=== PATIENT | male | born 1970 | race Caucasian/White ===

== ENCOUNTER 2017-08-19 00:34 | Emergency (ER) | payer BC ==
[2017-08-19] MEDS: Tetracaine HCl/PF 0.5% 4 ML Bottle EYEBOTH ONE (00:54)
[2017-08-19] MEDS: Tetracaine HCl/PF 0.5% 4 ML Bottle ONE (00:56)
[2017-08-19] MEDS ORDERED: Bacitracin/Polymyxin B Ophth Oint 3.5 GM Tube EYELF ONE (01:04)
[2017-08-19] MEDS ORDERED: Bacitracin/Neomycin/Polymyxin B Ophth Oint 3.5 GM Tube EYELF ONE (01:07)
[2017-08-19] MEDS: Bacitracin/Neomycin/Polymyxin B Ophth Oint 3.5 GM Tube EYELF ONE (01:07)
[2017-08-19] MEDS: Balanced Salt Solution Ophth Irrig 30 ML Bottle EYELF ONE (01:10)
--- NOTE | 2017-08-19 01:11 | EDM.PDOC ---
ED HPI GENERAL MEDICAL PROBLEM - General Chief Complaint: Eye Problems Stated Complaint: left eye discomfort Time Seen by Provider: 08/19/17 00:45 Source of Information: Reports: Patient ([id number]) History Limitations: Reports: No Limitations - History of Present Illness INITIAL COMMENTS - FREE TEXT/NARRATIVE: Patient is a 46-year-old who states he may have a foreign body in his right eye he denies doing anything that would cause this to happen he states he was home they down then felt something in his eye will came into the ER for evaluation and treatment Onset: Today Duration: Hour(s):, Getting Worse Location: Reports: Face Quality: Reports: Ache, Dull Severity: Mild Improves with: Reports: None Worsens with: Reports: None Context: Reports: Other (Unknown) Associated Symptoms: Reports: No Other Symptoms Treatments RECRUITER: Reports: Home Treatments Left Eye Pain Score (Numeric/FACES): 2 - Related Data Allergies Allergy/AdvReac Type Severity Reaction Status Date / Time No Known Allergies Allergy Verified 08/19/17 00:35 Home Meds: Home Meds Escitalopram [Lexapro] 20 mg PO BEDTIME 08/19/17 [History] ED ROS GENERAL - Review of Systems Review Of Systems: See Below Constitutional: Reports: No Symptoms HEENT: Reports: No Symptoms Respiratory: Reports: No Symptoms Cardiovascular: Reports: No Symptoms Endocrine: Reports: No Symptoms GI/Abdominal: Reports: No Symptoms : Reports: No Symptoms Musculoskeletal: Reports: No Symptoms Skin: Reports: No Symptoms Neurological: Reports: No Symptoms Psychiatric: Reports: No Symptoms ED EXAM GENERAL W FULL EYE - Physical Exam Exam: See Below Exam Limited By: No Limitations General Appearance: Alert, WD/WN, No Apparent Distress Eye Exam: Bilateral Eye: PERRL Eyelids: Left: Lid Everted for Exam, Bilateral: Normal Appearance Conjunctiva & Sclera: Bilateral: Normal Appearance Cornea Exam: Bilateral: Normal Appearance, Corneal Abrasion (None), Corneal Ulcer (None), Cloudy Cornea (None), Foreign Body (None), Examined with Flourescein Extraocular Movements: Bilateral: Intact Pupils: Normal Accommodation Ears: Normal External Exam, Normal Canal, Hearing Grossly Normal, Normal TMs Nose: Normal Inspection, Normal Mucosa, No Blood Throat/Mouth: Normal Inspection, Normal Lips, Normal Teeth, Normal Gums, Normal Oropharynx, Normal Voice, No Airway Compromise Head: Atraumatic, Normocephalic Neck: Normal Inspection, Supple, Non-Tender, Full Range of Motion Respiratory/Chest: No Respiratory Distress, Lungs Clear, Normal Breath Sounds, No Accessory Muscle Use, Chest Non-Tender Cardiovascular: Normal Peripheral Pulses, Regular Rate, Rhythm, No Edema, No Gallop, No JVD, No Murmur, No Rub GI/Abdominal: Normal Bowel Sounds, Soft, Non-Tender, No Organomegaly, No Distention, No Abnormal Bruit, No Mass (Male) Exam: Deferred Rectal (Males) Exam: Deferred Back Exam: Normal Inspection, Full Range of Motion, NT Extremities: Normal Inspection, Normal Range of Motion, Non-Tender, Normal Capillary Refill, No Pedal Edema Neurological: Alert, Oriented, CN II-XII Intact, Normal Cognition, Normal Gait, Normal Reflexes, No Motor/Sensory Deficits Psychiatric: Normal Affect, Normal Mood Skin Exam: Warm, Dry, Intact, Normal Color, No Rash ED EYE w/ Add Procedure - Eye Procedure Alcaine Drops Administered: Yes Eye Irrigated w/ Saline (ccs): 25 Progress: Patient was taken to the ER where he was laid in the gurney tetracaine was applied to the left eye and I was examining with a Wood's lamp and fluorescein no foreign body was seen no scratches were noted the eye was then irrigated and an eye patch was applied for the next 24 hours patient is retired to return if not better or refer himself to the eye doctor. Course - Vital Signs Last Recorded V/S: Last Vital Signs Temp 97.9 F 08/19/17 00:42 Pulse 66 08/19/17 00:42 Resp 17 08/19/17 00:42 BP 132/88 08/19/17 00:42 Pulse Ox 100 08/19/17 00:42 - Orders/Labs/Meds Meds: Medications Discontinued Medications Generic Name Dose Route Start Last Admin Trade Name Freq PRN Reason Stop Dose Admin Bacitracin/Polymyxin B Sulfate 1 gm 08/19/17 01:04 Polysporin Ophth Oint EYELF 08/19/17 01:05 TID ONE Balanced Salt Solution Confirm 08/19/17 00:54 Eye Stream Eye Rinse Administered 08/19/17 00:55 Dose 30 ml .ROUTE .STK-MED ONE Balanced Salt Solution 30 ml 08/19/17 00:54 Eye Stream Eye Rinse EYELF 08/19/17 00:55 ONETIME ONE Neomycin/Polymyxin/Bacitracin Confirm 08/19/17 01:02 Neosporin Ophth Oint Administered 08/19/17 01:03 Dose 3.5 gm .ROUTE .STK-MED ONE Tetracaine HCl 4 ml 08/19/17 00:50 08/19/17 00:54 Tetracaine 0.5% Steri-Unit Twyla EYEBOTH 08/19/17 00:51 1 dose ASDIRECTED ONE Administration Tetracaine HCl Confirm 08/19/17 00:52 08/19/17 00:56 Tetracaine 0.5% Steri-Unit Twyla Administered 08/19/17 00:53 Not Given Dose 4 ml .ROUTE .STK-MED ONE Departure - Departure Time of Disposition: 01:12 Disposition: Home, Self-Care 01 Condition: Good Clinical Impression: Foreign body of left eye - Discharge Information Referrals: PCP,None [Primary Care Provider] - Care Plan Goals: Patient will be sent home with a high patch he is to apply 1 cm of Neosporin ointment every 6 hours for 2-3 days
[2017-08-19] MEDS: Balanced Salt Solution Ophth Irrig 30 ML Bottle ONE (01:14)
[2017-08-19] MEDS: Bacitracin/Neomycin/Polymyxin B Ophth Oint 3.5 GM Tube ONE (01:44)
== END 2017-08-19 01:30 | disposition home or self-care (01) ==
LOC: LL.ED 00:34
DX: T15.92XA Foreign body on external eye, part unspecified, left eye, initial encounter (principal); Z79.899 Other long term (current) drug therapy
CPT/HCPCS: 99283